=== PATIENT | male | born 1990 | race Caucasian/White ===

== ENCOUNTER 2020-08-30 09:05 | Day surgery (SDC) | payer OTHER ==
[2020-08-30] MEDS ORDERED: PROPOFOL 200 MG/20 ML VIAL ONE (09:24)
[2020-08-30] MEDS ORDERED: Ondansetron PF 4 MG/2 ML Vial ONE (09:24)
[2020-08-30] MEDS ORDERED: Fentanyl 100 MCG/2 ML VIAL ONE (11:24)
[2020-08-30] MEDS ORDERED: HYDROcodone/Acetaminophen 5/325 mg Tablet ONE (12:04)
== END 2020-08-30 13:12 | disposition home or self-care (01) ==
LOC: SDC 09:05
PROVIDERS: ATTEND Internal Medicine Gastroenterology
PROC: 0DJD8ZZ Inspection of Lower Intestinal Tract, Via Natural or Artificial Opening Endoscopic (ICD-10-PCS; principal; 2020-08-30)
DX: K50.90 Crohn's disease, unspecified, without complications (principal); K52.9 Noninfective gastroenteritis and colitis, unspecified; K29.50 Unspecified chronic gastritis without bleeding; K43.5 Parastomal hernia without obstruction or gangrene; E66.9 Obesity, unspecified; Z68.26 Body mass index [BMI] 26.0-26.9, adult; Z79.899 Other long term (current) drug therapy; Z93.2 Ileostomy status
CPT/HCPCS: 88305; J2405; J2704; J3010

== ENCOUNTER 2021-11-21 15:48 | Outpatient (CLI) | payer BC ==
[2021-11-21 17:39] LABS: #Basophils 0.1 10x3/uL (0.0-0.2); #Eosinphils 0.1 10x3/uL (0.0-0.5); #Monocytes 0.6 10x3/uL (0.0-1.1); %Basophils 0.6 % (0.0-2.0); %Eosinophils 1.1 % (0.0-6.0); %Monocytes 4.6 % (0.0-10.0); %Neutrophils 72.3 % (40.0-75.0); Hemoglobin 17.8 g/dL (13.5-17.5); Mean Corpuscular HGB CONC 33.9 g/dL (32.0-36.0); Mean Corpuscular Volume 91.5 fl (81.2-95.1); Mean Platelet Volume 9.4 fl (7.4-10.4); Platelet Count 357 10x3/uL (150-450); RBC Distribution Width 12.6 % (11.5-14.5); Red Blood Cell (RBC) Count 5.74 10x6/uL (4.32-5.72); White Blood Cell (WBC) Count 12.5 10x3/uL (3.5-10.5)
[2021-11-21 17:59] LABS: Anion Gap 16 mmol/L (10-20); BUN (Urea Nitrogen) 11 mg/dL (8.9-20.6); Calc. Creatinine Clearance 0 mL/min (70-130); Carbon Dioxide 27 mmol/L (22-29); Chloride 102 mmol/L (98-107); Glucose 96 mg/dL (70-105); Sodium 140 mmol/L (136-145)
[2021-11-22 07:41] LABS: SARS-CoV-2 PCR by NAA Not Detected (NotDetected)
== END 2021-11-21 15:49 | disposition home or self-care (01) ==
LOC: LABBT 15:48
PROVIDERS: ATTEND Specialist
DX: Z01.812 Encounter for preprocedural laboratory examination (principal); K43.5 Parastomal hernia without obstruction or gangrene; K50.90 Crohn's disease, unspecified, without complications; Z93.2 Ileostomy status; Z20.822 Contact with and (suspected) exposure to COVID-19
CPT/HCPCS: 80048; 85025; U0003; U0005

== ENCOUNTER 2021-11-21 16:45 | Inpatient (IN) | payer BC ==
[2021-11-24] MEDS ORDERED: Acetaminophen 500 MG TAB ONE (06:12)
[2021-11-24] MEDS ORDERED: Ketorolac Tromethamine 30 MG/ML VIAL ONE ×2 (06:12→08:15)
[2021-11-24] MEDS ORDERED: Midazolam HCl 2 mg/2 ml Vial ONE ×2 (07:39→07:57)
[2021-11-24] MEDS ORDERED: Fentanyl 100 MCG/2 ML VIAL ONE ×2 (07:39→10:06)
[2021-11-24] MEDS ORDERED: fentaNYL Citrate/PF 100 MCG/2 ML SYRINGE ONE (07:54)
[2021-11-24] MEDS ORDERED: HYDROmorphone 0.5 MG/0.5 ML SYRINGE ONE ×2 (07:55→10:43)
[2021-11-24] MEDS ORDERED: Sodium Chloride 0.9% 100 ML ONE (08:09)
[2021-11-24] MEDS ORDERED: Piperacillin/Tazobactam 3.375 GM VIAL ONE (08:09)
[2021-11-24] MEDS ORDERED: Glycopyrrolate 0.2 MG/ML 5 ML SYRINGE ONE (08:15)
[2021-11-24] MEDS ORDERED: Rocuronium Bromide 10 MG/ML (10ML VIAL) ONE (08:15)
[2021-11-24] MEDS ORDERED: Lidocaine 1% PF 5 ML VIAL ONE (08:15)
[2021-11-24] MEDS ORDERED: Ondansetron PF 4 MG/2 ML Vial ONE (08:15)
[2021-11-24] MEDS ORDERED: PROPOFOL 200 MG/20 ML VIAL ONE (08:15)
[2021-11-24] MEDS ORDERED: Dexamethasone 20 MG/5 ML VIAL ONE (08:15)
[2021-11-24] MEDS ORDERED: Ropivacaine 0.5% HCl/PF (150 MG/30 ML VIAL) ONE (08:15)
[2021-11-24] MEDS ORDERED: Meperidine HCl/PF 25 MG/ML VIAL ONE (09:49)
[2021-11-24] MEDS ORDERED: Ondansetron HCl/PF 4 MG/2 ML Vial IVP PRN (09:57)
[2021-11-24] MEDS ORDERED: HYDROmorphone 2 MG/ML VIAL SLOW IVP PRN (09:57)
[2021-11-24] MEDS ORDERED: Promethazine HCl 25 MG/ML VIAL IM PRN ×2 (09:57→18:56)
[2021-11-24] MEDS ORDERED: Promethazine HCl 25 MG/ML VIAL IVPB PRN (09:57)
[2021-11-24] MEDS ORDERED: hydrALAZINE 20 MG/ML VIAL SLOW IVP PRN (10:19)
[2021-11-24] MEDS ORDERED: Morphine 4 MG/ML VIAL SLOW IVP PRN ×2 (10:19→10:52)
[2021-11-24] MEDS ORDERED: Ondansetron PF 4 MG/2 ML Vial IVP PRN ×2 (10:19→18:56)
[2021-11-24] MEDS ORDERED: Morphine 2 MG/ML VIAL SLOW IVP PRN (10:19)
[2021-11-24] MEDS ORDERED: Acetaminophen 500 MG TAB PO PRN (10:22)
[2021-11-24] MEDS: Ketorolac Tromethamine 30 MG/ML VIAL IVP SCH ×4 (12:00→23:13)
[2021-11-24] MEDS: Sodium Chloride 0.45% 1,000 ML IV SCH ×2 (12:56→19:40)
[2021-11-24 13:02] VITALS: BMI 24.3
[2021-11-24] MEDS: Gabapentin 300 MG CAP PO SCH ×2 (15:35→21:02)
[2021-11-24] MEDS ORDERED: Fentanyl 100 MCG/2 ML VIAL SLOW IVP PRN (17:03)
[2021-11-24] MEDS: cefOXitin 2 GM in Sodium Chloride 0.9% 100 ML IVPB SCH ×2 (17:08→23:13)
[2021-11-24] MEDS ORDERED: diphenhydrAMINE 50 MG/ML VIAL IVP PRN (18:56)
[2021-11-24] MEDS ORDERED: diphenhydrAMINE 50 MG/ML VIAL IM PRN (18:56)
[2021-11-24] MEDS ORDERED: Naloxone HCl 0.4 mg/ml Vial IV PRN (18:56)
[2021-11-24] MEDS ORDERED: diphenhydrAMINE 25 MG CAP PO PRN (18:56)
[2021-11-24] MEDS ORDERED: Communication Order-Pharmacy FS SCH (19:00)
[2021-11-24] MEDS: HYDROmorphone 10 mg/100 ml CADD IVPB PRN (19:40)
[2021-11-24] MEDS: Famotidine 20 MG TAB PO SCH (21:02)
[2021-11-24] MEDS: Enoxaparin Sodium 40 MG/0.4 ML SYRINGE SC SCH (21:02)
[2021-11-24] MEDS: Zolpidem Tartrate 5 MG TAB PO PRN (23:12)
[2021-11-25] MEDS: Sodium Chloride 0.45% 1,000 ML IV SCH ×2 (03:38→11:47)
[2021-11-25] MEDS: Ketorolac Tromethamine 30 MG/ML VIAL IVP SCH ×3 (05:15→18:42)
[2021-11-25 06:14] LABS: #Eosinphils 0.1 thou/uL (0.0-0.7); #Lymphocytes 1.6 thou/uL (1.20-3.40); #Monocytes 1.2 thou/uL (0.11-0.59); #Neutrophils 13.7 thou/uL (1.40-6.50); %Basophils 0.2 % (0.0-1.0); %Eosinophils 0.4 % (0.0-10.0); %Lymphocytes 9.6 % (21.0-51.0); %Monocytes 7.3 % (0.0-10.0); %Neutrophils 82.5 % (42.0-75.0); Hemoglobin 15.7 g/dL (14.0-18.0); Mean Corpuscular HGB CONC 32.8 g/dL (32.0-36.0); Mean Corpuscular Hemoglobin 31.7 pg (27.0-31.0); Mean Corpuscular Volume 96.8 fL (78.0-98.0); Mean Platelet Volume 6.8 fL (7.4-10.4); Platelet Count 311 thou/uL (130-400); RBC Distribution Width 11.8 % (11.5-14.5); Red Blood Cell (RBC) Count 4.96 mill/uL (4.70-6.10); White Blood Cell (WBC) Count 16.6 thou/uL (4.8-10.8)
[2021-11-25 06:41] LABS: Anion Gap 13 mmol/L (10-20); BUN (Urea Nitrogen) 15 mg/dL (8.9-20.6); Calc. Creatinine Clearance 143 mL/min (70-130); Carbon Dioxide 22 mmol/L (22-29); Chloride 101 mmol/L (98-107); Potassium 4.1 mmol/L (3.5-5.1); Sodium 132 mmol/L (136-145)
[2021-11-25 06:42] LABS: Calcium 8.7 mg/dL (7.8-10.44); Glucose 96 mg/dL (70-105)
[2021-11-25] MEDS: Gabapentin 300 MG CAP PO SCH ×3 (08:30→20:23)
[2021-11-25] MEDS: Famotidine 20 MG TAB PO SCH ×2 (08:30→20:23)
[2021-11-25] MEDS ORDERED: HYDROcodone/Acetaminophen 7.5/325 mg Tablet PO PRN ×2 (10:21)
[2021-11-25] MEDS: HYDROmorphone 10 mg/100 ml CADD IVPB PRN (10:31)
[2021-11-25] MEDS ORDERED: HYDROmorphone 10 mg/100 ml CADD IVPB PRN (12:52)
[2021-11-25] MEDS ORDERED: Sodium Chloride 0.45% 1,000 ML IV SCH (13:16)
[2021-11-25] MEDS: Zolpidem Tartrate 5 MG TAB PO PRN (20:23)
[2021-11-25] MEDS: Enoxaparin Sodium 40 MG/0.4 ML SYRINGE SC SCH (20:23)
[2021-11-26] MEDS: Ketorolac Tromethamine 30 MG/ML VIAL IVP SCH ×3 (00:07→11:22)
[2021-11-26] MEDS: Famotidine 20 MG TAB PO SCH ×2 (08:47→20:18)
[2021-11-26] MEDS: Gabapentin 300 MG CAP PO SCH ×3 (08:48→20:18)
[2021-11-26] MEDS ORDERED: Ibuprofen 600 MG TAB PO PRN (12:48)
[2021-11-26] MEDS: HYDROcodone/Acetaminophen 5/325 mg Tablet PO PRN ×3 (13:18→20:17)
[2021-11-26] MEDS: Enoxaparin Sodium 40 MG/0.4 ML SYRINGE SC SCH (20:18)
[2021-11-26] MEDS ORDERED: Zolpidem Tartrate 5 MG TAB PO PRN (23:04)
[2021-11-27] MEDS: HYDROcodone/Acetaminophen 5/325 mg Tablet PO PRN ×2 (04:00→10:13)
[2021-11-27] MEDS: Famotidine 20 MG TAB PO SCH (08:19)
[2021-11-27] MEDS: Gabapentin 300 MG CAP PO SCH (08:20)
[2021-11-27 12:02] VITALS: BP 116/71; TEMP 98.4
== END 2021-11-27 15:18 | disposition home or self-care (01) | DRG 330 ==
LOC: SURG A 11-24 05:45 → SURG B 11-24 12:14 → SURG A 11-24 17:34
PROVIDERS: ADMIT Specialist; ATTEND Specialist
PROC: 0DW807Z Revision of Autologous Tissue Substitute in Small Intestine, Open Approach (ICD-10-PCS; principal; 2021-11-24)
PROC: 0DB80ZZ Excision of Small Intestine, Open Approach (ICD-10-PCS; 2021-11-24)
DX: Z43.2 Encounter for attention to ileostomy (principal); K50.90 Crohn's disease, unspecified, without complications; K43.5 Parastomal hernia without obstruction or gangrene; Z20.822 Contact with and (suspected) exposure to COVID-19
CPT/HCPCS: 36415; 80048; 85025; 88304; 88307; J0694; J1100; J1170; J1650; J1885; J2175; J2250; J2270; J2405; J2543; J2704; J2795; J3010; J3490

== ENCOUNTER 2021-11-29 13:58 | Inpatient (IN) | payer BC ==
[~2021-11-29 13:58] MED LIST: GASTROGRAFIN 30 ML BOT ONE; Iopamidol 370 76% 100 ML VIAL ONE
[2021-11-29] MEDS ORDERED: Morphine 4 MG/ML VIAL ONE ×2 (14:58→18:15)
[2021-11-29] MEDS ORDERED: Ondansetron PF 4 MG/2 ML Vial ONE (14:58)
[2021-11-29 15:04] LABS: #Eosinphils 0.1 thou/uL (0.0-0.7); #Lymphocytes 1.2 thou/uL (1.20-3.40); #Monocytes 0.9 thou/uL (0.11-0.59); #Neutrophils 7.8 thou/uL (1.40-6.50); %Basophils 0.2 % (0.0-1.0); %Eosinophils 0.9 % (0.0-10.0); %Monocytes 9.1 % (0.0-10.0); %Neutrophils 77.8 % (42.0-75.0); Hemoglobin 16.4 g/dL (14.0-18.0); Mean Corpuscular HGB CONC 33.8 g/dL (32.0-36.0); Mean Corpuscular Hemoglobin 32.2 pg (27.0-31.0); Mean Corpuscular Volume 95.3 fL (78.0-98.0); Mean Platelet Volume 7.4 fL (7.4-10.4); Platelet Count 304 thou/uL (130-400); RBC Distribution Width 12.1 % (11.5-14.5); Red Blood Cell (RBC) Count 5.09 mill/uL (4.70-6.10); White Blood Cell (WBC) Count 10.1 thou/uL (4.8-10.8)
[2021-11-29 16:31] LABS: Calcium 9.2 mg/dL (7.8-10.44); Chloride 103 mmol/L (98-107); Potassium 3.9 mmol/L (3.5-5.1); Sodium 134 mmol/L (136-145)
[2021-11-29 16:32] LABS: Glucose 96 mg/dL (70-105)
[2021-11-29 16:33] LABS: Anion Gap 15 mmol/L (10-20); Carbon Dioxide 20 mmol/L (22-29)
[2021-11-29 16:34] LABS: Bilirubin, Total 1.1 mg/dL (0.2-1.2)
[2021-11-29 16:35] LABS: Alkaline Phosphatase 85 U/L (40-110); Calc. Creatinine Clearance 0 mL/min (70-130)
[2021-11-29 16:36] LABS: BUN (Urea Nitrogen) 9 mg/dL (8.9-20.6)
[2021-11-29 16:37] LABS: AST (SGOT) 28 U/L (5-34)
[2021-11-29 16:38] LABS: ALT (SGPT) 47 U/L (8-55); Lipase 7 U/L (8-78)
[2021-11-29 18:21] LABS: Bilirubin 1+ (Negative); Blood, Urine Negative (Negative); Clarity Clear (Clear); Glucose, Urine (Dipstick) Normal (Negative); Ketone, Urine 10 mg/dL (Negative); Leukocyte Negative Leu/uL (Negative); Nitrite Negative (Negative); Protein, Urine (Dipstick) 20 mg/dL (Neg-Trace); Specific Gravity, Urine 1.032 (1.002-1.036); Urobilinogen Normal mg/dL (Less than 2)
[2021-11-29] MEDS ORDERED: hydrALAZINE 20 MG/ML VIAL SLOW IVP PRN (18:23)
[2021-11-29] MEDS ORDERED: Ondansetron ODT 4 MG TAB PO PRN (18:23)
[2021-11-29] MEDS ORDERED: Promethazine HCl 25 MG/ML VIAL IM PRN (18:23)
[2021-11-29] MEDS ORDERED: Ondansetron PF 4 MG/2 ML Vial IVP PRN (18:23)
[2021-11-29] MEDS ORDERED: Ketorolac Tromethamine 30 MG/ML VIAL IVP SCH (18:30)
[2021-11-29] MEDS: Zolpidem Tartrate 5 MG TAB PO SCH (21:08)
[2021-11-29] MEDS: Enoxaparin Sodium 40 MG/0.4 ML SYRINGE SC SCH (21:10)
[2021-11-29] MEDS: D5 0.9% NS w/ 20 mEq KCl 1,000 ML IV SCH (21:10)
[2021-11-29] MEDS: Morphine 2 MG/ML VIAL SLOW IVP PRN (22:00)
[2021-11-29 23:32] LABS: SARS-CoV-2 NAA Rapid Test Not Detected (NotDetected)
[2021-11-29 23:44] VITALS: BMI 23.2
[2021-11-30] MEDS: Ketorolac Tromethamine 30 MG/ML VIAL IVP PRN ×4 (04:06→22:08)
[2021-11-30] MEDS: D5 0.9% NS w/ 20 mEq KCl 1,000 ML IV SCH ×3 (04:12→18:21)
[2021-11-30] MEDS: Morphine 2 MG/ML VIAL SLOW IVP PRN ×4 (04:16→20:40)
[2021-11-30] MEDS: Pantoprazole 40 MG VIAL IVP SCH (08:36)
[2021-11-30] MEDS ORDERED: Chloraseptic Spray 180 ml Bottle PO PRN (14:00)
[2021-11-30] MEDS ORDERED: Cepastat Lozenges 1 LOZ PO PRN (14:00)
[2021-11-30] MEDS: Enoxaparin Sodium 40 MG/0.4 ML SYRINGE SC SCH (20:40)
[2021-11-30] MEDS: Zolpidem Tartrate 5 MG TAB PO SCH (20:40)
[2021-12-01] MEDS: D5 0.9% NS w/ 20 mEq KCl 1,000 ML IV SCH ×3 (01:15→19:52)
[2021-12-01] MEDS: Morphine 2 MG/ML VIAL SLOW IVP PRN (01:15)
[2021-12-01] MEDS: Ketorolac Tromethamine 30 MG/ML VIAL IVP PRN ×3 (04:15→20:54)
[2021-12-01 06:25] LABS: #Eosinphils 0.1 thou/uL (0.0-0.7); #Monocytes 1.1 thou/uL (0.11-0.59); %Basophils 0.3 % (0.0-1.0); %Eosinophils 0.8 % (0.0-10.0); %Lymphocytes 9.4 % (21.0-51.0); %Monocytes 10.7 % (0.0-10.0); %Neutrophils 78.8 % (42.0-75.0); Hemoglobin 13.7 g/dL (14.0-18.0); Mean Corpuscular HGB CONC 33.6 g/dL (32.0-36.0); Mean Corpuscular Hemoglobin 32.5 pg (27.0-31.0); Mean Corpuscular Volume 96.5 fL (78.0-98.0); Mean Platelet Volume 6.5 fL (7.4-10.4); Platelet Count 293 thou/uL (130-400); RBC Distribution Width 11.7 % (11.5-14.5); Red Blood Cell (RBC) Count 4.23 mill/uL (4.70-6.10); White Blood Cell (WBC) Count 10.2 thou/uL (4.8-10.8)
[2021-12-01 06:57] LABS: ALT (SGPT) 34 U/L (8-55); AST (SGOT) 15 U/L (5-34); Albumin 3.4 g/dL (3.5-5.0); Alkaline Phosphatase 78 U/L (40-110); Anion Gap 11 mmol/L (10-20); BUN (Urea Nitrogen) 8 mg/dL (8.9-20.6); Bilirubin, Total 0.8 mg/dL (0.2-1.2); Calc. Creatinine Clearance 166 mL/min (70-130); Calcium 8.8 mg/dL (7.8-10.44); Carbon Dioxide 22 mmol/L (22-29); Chloride 109 mmol/L (98-107); Globulin 2.6 g/dL (2.4-3.5); Glucose 100 mg/dL (70-105); Magnesium 1.7 mg/dL (1.6-2.6); Phosphorus 2.1 mg/dL (2.3-4.7); Potassium 3.6 mmol/L (3.5-5.1); Sodium 138 mmol/L (136-145)
[2021-12-01] MEDS: Morphine 4 MG/ML VIAL SLOW IVP PRN ×4 (09:15→21:56)
[2021-12-01] MEDS: Pantoprazole 40 MG VIAL IVP SCH (09:16)
[2021-12-01] MEDS ORDERED: Potassium Phosphate 9 MMOL in Sodium Chloride 0.9% 100 ML IVPB SCH (11:15)
[2021-12-01] MEDS: Enoxaparin Sodium 40 MG/0.4 ML SYRINGE SC SCH (20:52)
[2021-12-01] MEDS: Zolpidem Tartrate 5 MG TAB PO SCH (20:53)
[2021-12-01] MEDS: Saccharomyces boulardii 250 MG CAP PO SCH (20:54)
[2021-12-02] MEDS: Morphine 4 MG/ML VIAL SLOW IVP PRN ×6 (01:06→19:19)
[2021-12-02] MEDS: Ketorolac Tromethamine 30 MG/ML VIAL IVP PRN ×3 (04:09→20:37)
[2021-12-02] MEDS ORDERED: Acetaminophen 500 MG TAB PO SCH (04:30)
[2021-12-02] MEDS: D5 0.9% NS w/ 20 mEq KCl 1,000 ML IV SCH ×3 (04:45→19:28)
[2021-12-02 06:32] LABS: Anion Gap 13 mmol/L (10-20); BUN (Urea Nitrogen) 7 mg/dL (8.9-20.6); Calc. Creatinine Clearance 154 mL/min (70-130); Calcium 8.4 mg/dL (7.8-10.44); Carbon Dioxide 21 mmol/L (22-29); Chloride 108 mmol/L (98-107); Glucose 108 mg/dL (70-105); Magnesium 1.6 mg/dL (1.6-2.6); Phosphorus 2.1 mg/dL (2.3-4.7); Potassium 3.5 mmol/L (3.5-5.1); Sodium 138 mmol/L (136-145)
[2021-12-02] MEDS: Saccharomyces boulardii 250 MG CAP PO SCH ×2 (09:21→20:37)
[2021-12-02] MEDS: Pantoprazole 40 MG VIAL IVP SCH (09:21)
[2021-12-02] MEDS: Zolpidem Tartrate 5 MG TAB PO SCH (20:36)
[2021-12-02] MEDS: Enoxaparin Sodium 40 MG/0.4 ML SYRINGE SC SCH (21:34)
[2021-12-02] MEDS: Morphine 2 MG/ML VIAL SLOW IVP PRN (23:43)
[2021-12-03] MEDS: Ketorolac Tromethamine 30 MG/ML VIAL IVP PRN ×3 (04:33→20:16)
[2021-12-03] MEDS: Morphine 2 MG/ML VIAL SLOW IVP PRN ×3 (04:33→21:46)
[2021-12-03] MEDS: D5 0.9% NS w/ 20 mEq KCl 1,000 ML IV SCH ×3 (04:38→20:16)
[2021-12-03] MEDS: Morphine 4 MG/ML VIAL SLOW IVP PRN ×3 (09:30→18:28)
[2021-12-03] MEDS: Saccharomyces boulardii 250 MG CAP PO SCH ×2 (09:31→20:17)
[2021-12-03] MEDS: Pantoprazole 40 MG VIAL IVP SCH (09:31)
[2021-12-03 10:31] LABS: #Eosinphils 0.1 thou/uL (0.0-0.7); #Lymphocytes 1.2 thou/uL (1.20-3.40); #Monocytes 1.2 thou/uL (0.11-0.59); #Neutrophils 7.6 thou/uL (1.40-6.50); %Basophils 0.2 % (0.0-1.0); %Eosinophils 1.2 % (0.0-10.0); %Lymphocytes 11.8 % (21.0-51.0); %Monocytes 11.5 % (0.0-10.0); %Neutrophils 75.2 % (42.0-75.0); Hemoglobin 13.5 g/dL (14.0-18.0); Mean Corpuscular HGB CONC 33.6 g/dL (32.0-36.0); Mean Corpuscular Hemoglobin 32.6 pg (27.0-31.0); Mean Corpuscular Volume 97.2 fL (78.0-98.0); Mean Platelet Volume 6.2 fL (7.4-10.4); Platelet Count 321 thou/uL (130-400); RBC Distribution Width 11.5 % (11.5-14.5); Red Blood Cell (RBC) Count 4.15 mill/uL (4.70-6.10)
[2021-12-03] MEDS: Enoxaparin Sodium 40 MG/0.4 ML SYRINGE SC SCH (20:16)
[2021-12-03] MEDS: Zolpidem Tartrate 5 MG TAB PO SCH (21:47)
[2021-12-04] MEDS: Morphine 4 MG/ML VIAL SLOW IVP PRN (01:42)
[2021-12-04] MEDS: D5 0.9% NS w/ 20 mEq KCl 1,000 ML IV SCH ×2 (01:44→12:28)
[2021-12-04] MEDS: Morphine 2 MG/ML VIAL SLOW IVP PRN ×3 (06:22→12:23)
[2021-12-04] MEDS: Pantoprazole 40 MG VIAL IVP SCH (09:14)
[2021-12-04] MEDS: Saccharomyces boulardii 250 MG CAP PO SCH ×2 (09:14→20:25)
[2021-12-04] MEDS: Ketorolac Tromethamine 30 MG/ML VIAL IVP PRN (16:53)
[2021-12-04] MEDS: Enoxaparin Sodium 40 MG/0.4 ML SYRINGE SC SCH (20:25)
[2021-12-04] MEDS: diphenhydrAMINE 50 MG CAP PO SCH (20:26)
[2021-12-05] MEDS: Saccharomyces boulardii 250 MG CAP PO SCH ×2 (08:05→20:25)
[2021-12-05 10:40] LABS: HBSAB Concentration Less than 8.00 mIU/mL; HBSAg Index 0.27 S/CO (0-0.99); Hep B Core Total Ab Non-Reactive (NonReactive); Hep B Core Total Index 0.05 S/CO (0-0.79); Hep B Surf AB Non-Reactive (NonReactive); Hep B Surf Ag Non-Reactive S/CO (NonReactive); Hep C IgG Ab Non-Reactive (NonReactive); Hep C Index 0.12 S/CO (0-0.79)
[2021-12-05] MEDS: Ketorolac Tromethamine 30 MG/ML VIAL IVP PRN ×2 (11:59→20:21)
[2021-12-05] MEDS: diphenhydrAMINE 50 MG CAP PO SCH (20:25)
[2021-12-05] MEDS: Enoxaparin Sodium 40 MG/0.4 ML SYRINGE SC SCH (21:38)
[2021-12-06] MEDS: Ketorolac Tromethamine 30 MG/ML VIAL IVP PRN ×4 (03:32→23:49)
[2021-12-06] MEDS: Saccharomyces boulardii 250 MG CAP PO SCH ×2 (10:24→20:43)
[2021-12-06] MEDS: Enoxaparin Sodium 40 MG/0.4 ML SYRINGE SC SCH (20:43)
[2021-12-06] MEDS: diphenhydrAMINE 50 MG CAP PO SCH (20:43)
[2021-12-07] MEDS: Ketorolac Tromethamine 30 MG/ML VIAL IVP PRN ×2 (06:03→12:19)
[2021-12-07] MEDS ORDERED: HYDROcodone/Acetaminophen 5/325 mg Tablet PO PRN (09:56)
[2021-12-07] MEDS: Saccharomyces boulardii 250 MG CAP PO SCH (10:19)
[2021-12-07 12:18] VITALS: BP 119/81; TEMP 98.8
[2021-12-09 22:37] LABS: QuantiFERON-TB Gold Plus Negative (Negative)
== END 2021-12-07 12:55 | disposition home or self-care (01) | DRG 394 ==
LOC: ERS 13:58 → SJJU 19:31
PROVIDERS: ADMIT Specialist; ATTEND Specialist
DX: K91.89 Other postprocedural complications and disorders of digestive system (principal); K50.90 Crohn's disease, unspecified, without complications; K56.600 Partial intestinal obstruction, unspecified as to cause; F17.210 Nicotine dependence, cigarettes, uncomplicated; Y83.9 Surgical procedure, unspecified as the cause of abnormal reaction of the patient, or of later complication, without mention of misadventure at the time of the procedure; Y73.8 Miscellaneous gastroenterology and urology devices associated with adverse incidents, not elsewhere classified; K91.0 Vomiting following gastrointestinal surgery; R19.7 Diarrhea, unspecified; Z20.822 Contact with and (suspected) exposure to COVID-19; Z90.49 Acquired absence of other specified parts of digestive tract
CPT/HCPCS: 36415; 74019; 74177; 80048; 80053; 81003; 83605; 83690; 83735; 84100; 84134; 85025; 86480; 86704; 86706; 86708; 86803; 87324; 87340; 87449; 96361; 96374; 96375; 96376; C9113; J1650; J1885; J2270; J2405; J3480; J3490; Q9963; Q9967; U0002